=== PATIENT | female | born 1990 | race Caucasian/White ===

== ENCOUNTER 2020-03-07 11:45 | Emergency (ER) | payer BC ==
[~2020-03-07] VITALS: Ht 175.3 cm; Wt 131.1 kg
[2020-03-07] MEDS ORDERED: TYLENOL # 31 EA PO (15:58)
[2020-03-07 16:15] VITALS: BP 138/72
== END 2020-03-07 16:16 | disposition home or self-care (01) ==
LOC: ER 12:33
DX: S42.142A Displaced fracture of glenoid cavity of scapula, left shoulder, initial encounter for closed fracture (principal); M25.512 Pain in left shoulder; W20.8XXA Other cause of strike by thrown, projected or falling object, initial encounter; Y93.01 Activity, walking, marching and hiking; Y92.008 Other place in unspecified non-institutional (private) residence as the place of occurrence of the external cause
CPT/HCPCS: 71046; 99284

== ENCOUNTER 2024-05-26 10:41 | Observation (INO) | payer BC ==
[~2024-05-26] VITALS: Ht 172.7 cm; Wt 147.9 kg
[~2024-05-26 10:41] MED LIST: MULTI-VITAMIN1 EACH PO; TYLENOL # 31 EA PO
[2024-05-26] MEDS ORDERED: FENTANYL CITRATE/PF 100MCG/2 ML INJ ONE ×3 (10:55→13:33)
[2024-05-26] MEDS ORDERED: ROCURONIUM BROMIDE 1 ML IV ONE (10:56)
[2024-05-26] MEDS ORDERED: MIDAZOLAM HCL 2 MG/2 ML VIAL ONE (10:56)
[2024-05-26] MEDS ORDERED: LIDOCAINE HCL 2% LOCAL INJ 5 ML SDV VIAL INJ ONE (10:56)
[2024-05-26] MEDS ORDERED: PROPOFOL IV EMULSION 10 MG/ML 20 ML VIAL ONE ×2 (10:56→11:51)
[2024-05-26] MEDS: SCOPOLAMINE 1 MG PATCH ONE (11:10)
[2024-05-26] MEDS: LACTATED RINGER'S 1,000 ML ONE (11:10)
[2024-05-26] MEDS: CEFAZOLIN SODIUM 2 GM ONE (11:10)
[2024-05-26 11:23] LABS: BASOPHILS % 0.4 % (0.0-1.0); EOSINOPHILS % 0.5 % (0.0-6.0); HEMATOCRIT 43.4 % (34.2-44.1); LYMPHOCYTES # (AUTO) 2.5 (1.0-3.2); LYMPHOCYTES % 30.6 % (18.0-39.1); MEAN CORPUSCULAR HEMOGLOBIN 29.5 pg (28-32); MEAN CORPUSCULAR HGB CONC 34.6 g/dL (31-35); MEAN CORPUSCULAR VOLUME 85.3 fL (81-99); MONOCYTES # (AUTO) 0.8 (0.2-0.8); NEUTROPHILS # (AUTO) 4.7 (2.1-6.9); NEUTROPHILS % 58.1 % (38.7-80.0); PLATELET COUNT 369 x10e3/uL (140-360); RED BLOOD COUNT 5.09 x10e6/uL (3.6-5.1); RED CELL DISTRIBUTION WIDTH 12.9 % (11.7-14.4); WHITE BLOOD COUNT 8.14 x10e3/uL (4.8-10.8)
[2024-05-26] MEDS ORDERED: SCOPOLAMINE 1 MG PATCH TOP SCH (11:30)
[2024-05-26] MEDS ORDERED: Morphine 2mg Syringe 2 MG/ML SYR IV PRN (11:30)
[2024-05-26 11:47] LABS: ANION GAP 16.4 mmol/L (8-16); CREATININE, SERUM 1.05 mg/dL (0.57-1.11)
[2024-05-26 11:48] LABS: POTASSIUM 3.4 mmol/L (3.5-5.1)
[2024-05-26] MEDS ORDERED: DEXAMETHASONE SOD PHOS INJ 4 MG/ML SDV ONE (11:57)
[2024-05-26] MEDS ORDERED: FAMOTIDINE 20 MG/2 ML VIAL IV ONE (12:18)
[2024-05-26] MEDS ORDERED: METOCLOPRAMIDE HCL 10 MG/2ML VIAL ONE (12:18)
[2024-05-26] MEDS ORDERED: ACETAMINOPHEN 1000 MG/100 ML 100 ML IV ONE (12:18)
[2024-05-26] MEDS ORDERED: GLYCOPYRROLATE INJ 0.2 MG/ML VIAL ONE (12:35)
[2024-05-26] MEDS ORDERED: SUGAMMADEX SODIUM 200 MG/2 ML VIAL IV ONE (13:15)
[2024-05-26] MEDS ORDERED: ONDANSETRON HCL INJ 2MG/ML 2ML 2 MG/ML VIAL ONE (13:15)
[2024-05-26] MEDS: MEPERIDINE HCL INJ 25 MG/ML VIAL ONE (13:44)
[2024-05-26] MEDS: FENTANYL CITRATE/PF 100MCG/2 ML INJ ONE (14:19)
[2024-05-26] MEDS: ONDANSETRON HCL INJ 2MG/ML 2ML 2 MG/ML VIAL IV PRN (16:00)
[2024-05-26 16:03] VITALS: BP 147/86; PULSE 67; RESP 17; TEMP 97.2; O2SAT 97
[2024-05-26] MEDS: HYDROCODONE/APAP 7.5MG-325MG 1 EA TAB PO PRN (16:16)
[2024-05-26] MEDS: SODIUM CHLORIDE 0.9% 1000ML 1,000 ML IV SCH (16:17)
[2024-05-26 16:34] VITALS: PULSE 66; RESP 16; O2SAT 97
[2024-05-26 18:17] VITALS: BP 147/86; PULSE 67; RESP 17; TEMP 97.2; O2SAT 97
[2024-05-26 18:28] VITALS: BP 147/86; PULSE 67; RESP 18; TEMP 97.2; O2SAT 99
[2024-05-26] MEDS: ENOXAPARIN SOD INJ 40 MG/0.4 ML SYR SC ONE (19:41)
[2024-05-27] MEDS ORDERED: ENOXAPARIN SOD INJ 40 MG/0.4 ML SYR SC SCH (09:00)
== END 2024-05-26 20:19 | disposition home or self-care (01) ==
LOC: OR 10:41 → PACU V 11:18 → MED/SURG3 15:35
PROVIDERS: ADMIT Internal Medicine; ATTEND Internal Medicine
DX: E66.01 Morbid (severe) obesity due to excess calories (principal); Z68.43 Body mass index [BMI] 50.0-59.9, adult; G89.28 Other chronic postprocedural pain; K76.0 Fatty (change of) liver, not elsewhere classified; I10 Essential (primary) hypertension; E28.2 Polycystic ovarian syndrome
CPT/HCPCS: 36415; 43775; 43999; 47379; 80048; 81025; 85025; 88307; 88313; 94799; C9804; G0378; J0131; J0690; J1100; J1650; J2003; J2175; J2250; J2405; J2704; J2765; J3010; J7121